=== PATIENT | male | born 1970 | race Caucasian/White ===

== ENCOUNTER 2018-01-06 00:48 | Emergency (ER) | payer MEDICAID, OTHER ==
[~2018-01-06] VITALS: Ht 188 cm; Wt 124.9 kg
[~2018-01-06 00:48] MED LIST: Z.0.NO CURRENT MEDS
[2018-01-06 00:50] VITALS: BP 133/74; PULSE 89; RESP 18; TEMP 99.7; O2SAT 96
--- NOTE | 2018-01-06 01:32 | PD ---
HPI Chief Complaint: Cold / Flu Symptoms Time Seen by Provider: 01:20 Travel History International Travel<30 days: No Contact w/Intl Traveler<30days: No Traveled to known affect area: No History of Present Illness HPI The patient is a 47-year-old male that complains of a low-grade fever, nonproductive cough and myalgias for 2 days. He denies any shortness of breath. He does not smoke. He denies any nausea, vomiting or diarrhea. PFSH Past Medical History Diminished Hearing: No Social History Alcohol Use: No Tobacco Use: No Substance Use: No Allergies-Medications (Allergen,Severity, Reaction): Coded Allergies: Sulfa (Sulfonamide Antibiotics) (Verified Allergy, Severe, NAUSEA, 01/06/18 ) Reported Meds & Prescriptions Reported Meds & Active Scripts Active No Active Prescriptions or Reported Medications Review of Systems Except as stated in HPI: all other systems reviewed are Neg Physical Exam Narrative GENERAL: The patient is alert, oriented 3 in no respiratory distress. His vital signs show temperature of 99.7 but are otherwise normal. SKIN: Focused skin assessment warm/dry. HEAD: Atraumatic. Normocephalic. EYES: Pupils equal and round. No scleral icterus. No injection or drainage. ENT: No nasal bleeding or discharge. Mucous membranes pink and moist. NECK: Trachea midline. No JVD. CARDIOVASCULAR: Regular rate and rhythm. No murmur appreciated. RESPIRATORY: No accessory muscle use. Clear to auscultation. Breath sounds equal bilaterally. GASTROINTESTINAL: Abdomen soft, non-tender, nondistended. Hepatic and splenic margins not palpable. No guarding or rebound is present. MUSCULOSKELETAL: No obvious deformities. No clubbing. No cyanosis. No edema. NEUROLOGICAL: Awake and alert. No obvious cranial nerve deficits. Motor grossly within normal limits. Normal speech. PSYCHIATRIC: Appropriate mood and affect; insight and judgment normal. Data Data Last Documented VS Vital Signs Date Time Temp Pulse Resp B/P (MAP) Pulse Ox O2 Delivery O2 Flow Rate FiO2 01/06/18 01:28 18 96 Room Air 01/06/18 00:50 99.7 89 133/74 (93) Orders Orders Influenzae A/B Antigen (01/06/18 01:20) [facility] Medical Decision Making Medical Screen Exam Complete: Yes Emergency Medical Condition: Yes Medical Record Reviewed: Yes Interpretation(s) The influenza A/B antigen is negative for flu a and flu B antigen. Differential Diagnosis Flu syndrome, nonspecific viral syndrome, pneumonia, bronchitis Narrative Course The patient has symptoms identical with the flu but tests negative for the flu. This is likely a nonspecific viral syndrome. Plan: The patient will be given Motrin 800 mg 3 times daily. He needs to follow -up with his primary care physician. Diagnosis Primary Impression: Viral syndrome Additional Instructions: As we discussed, follow-up with your primary care physician. If you develop symptoms of high fever, cough, shortness of breath you need be reevaluated in the emergency department. Viral syndromes reduce your resistance to pneumonias and other bacterial infections. Med/Other Pt SpecificInfo: Prescription(s) given Scripts Ibuprofen (Ibuprofen) 800 Mg Tab 800 MG PO TID, #30 TAB 0 Refills Prov: Manuel Mann MD 01/06/18 Disposition: 01 DISCHARGE HOME Condition: Stable Manuel Mann MD Jan 06, 2018 01:32
[2018-01-06] MEDS ORDERED: IBUP1TAB7 PO (01:58)
[2018-01-06 02:22] VITALS: BP 114/68
== END 2018-01-06 02:23 | disposition home or self-care (01) ==
LOC: PHED 00:48
DX: B34.9 Viral infection, unspecified (principal)
CPT/HCPCS: 87804; 99283